=== PATIENT | male | born 1930 | race Caucasian/White ===

== ENCOUNTER 2021-05-28 13:20 | Emergency (ER) | payer MEDICARE, BC ==
[2021-05-28] MEDS ORDERED: Ondansetron PF 4 MG/2 ML Vial ONE (13:56)
[2021-05-28 14:07] LABS: #Eosinphils 0.1 10x3/uL (0.0-0.5); #Monocytes 0.5 10x3/uL (0.0-1.1); #Neutrophils 8.4 10x3/uL (1.5-8.4); %Basophils 0.4 % (0.0-2.0); %Eosinophils 1.2 % (0.0-6.0); %Lymphocytes 15.2 % (18.0-47.0); %Monocytes 4.9 % (0.0-10.0); %Neutrophils 77.7 % (40.0-75.0); Hemoglobin 15.4 g/dL (13.5-17.5); Mean Corpuscular HGB CONC 33.4 g/dL (32.0-36.0); Mean Corpuscular Hemoglobin 31.5 pg (27.0-33.0); Mean Corpuscular Volume 94.3 fl (81.2-95.1); Mean Platelet Volume 11.2 fl (7.4-10.4); Platelet Count 220 10x3/uL (150-450); RBC Distribution Width 13.7 % (11.5-14.5); Red Blood Cell (RBC) Count 4.89 10x6/uL (4.32-5.72); White Blood Cell (WBC) Count 10.8 10x3/uL (3.5-10.5)
[2021-05-28 14:14] LABS: ALT (SGPT) 19 U/L (8-55); AST (SGOT) 24 U/L (5-34); Albumin 4.4 g/dL (3.4-4.8); Alkaline Phosphatase 122 U/L (40-110); Anion Gap 17 mmol/L (10-20); BUN (Urea Nitrogen) 22 mg/dL (8.4-25.7); Bilirubin, Total 1.4 mg/dL (0.2-1.2); Calc. Creatinine Clearance 0 mL/min (70-130); Calcium 10.1 mg/dL (7.8-10.44); Carbon Dioxide 24 mmol/L (23-31); Chloride 104 mmol/L (98-107); Globulin 4.3 g/dL (2.4-3.5); Glucose 138 mg/dL (83-110); Lipase 16 U/L (8-78); Potassium 4.5 mmol/L (3.5-5.1); Protein, Total 8.7 g/dL (5.8-8.1); Sodium 140 mmol/L (136-145)
[2021-05-28 14:15] LABS: CK (CPK) 42 U/L (30-200)
[2021-05-28 14:34] LABS: CKMB 1.7 ng/mL (0-6.6)
[2021-05-28 16:12] LABS: Troponin I 0.023 ng/mL (< 0.028)
[2021-05-28 18:07] LABS: Bilirubin Neg (Negative); Blood, Urine Negative (Negative); Clarity Clear (Clear); Glucose, Urine (Dipstick) Normal (Negative); Ketone, Urine 15 mg/dL (Negative); Leukocyte Negative (Negative); Nitrite Negative (Negative); Protein, Urine (Dipstick) 30 mg/dl (Neg-Trace); Specific Gravity, Urine 1.005 (1.002-1.036); Urobilinogen Normal mg/dL (Less than 2)
[2021-05-28 18:22] LABS: Squamous Epithelial 0-3 HPF (0-3)
[2021-05-28 18:23] LABS: Bacteria/HPF Rare-Few HPF (None Seen); RBC/HPF 0-3 HPF (0-3); WBC/HPF None Seen HPF (0-3)
[2021-05-29 16:25] LABS: SARS-CoV-2 PCR by NAA Not Detected (NotDetected)
== END 2021-05-28 19:15 | disposition home or self-care (01) ==
LOC: CSHERS 13:20
DX: K52.9 Noninfective gastroenteritis and colitis, unspecified (principal); K86.89 Other specified diseases of pancreas; R91.1 Solitary pulmonary nodule; Z20.822 Contact with and (suspected) exposure to COVID-19; I10 Essential (primary) hypertension; E03.9 Hypothyroidism, unspecified
CPT/HCPCS: 71045; 74177; 76705; 80053; 82550; 82553; 83605; 83690; 83880; 84484 ×2; 85025; 93005; U0003; U0005; 81003; 81015; J2405

== ENCOUNTER 2021-11-06 20:39 | Inpatient (IN) | payer MEDICARE, BC ==
[2021-11-06 21:44] LABS: #Eosinphils 0.2 10x3/uL (0.0-0.5); #Monocytes 1.9 10x3/uL (0.0-1.1); #Neutrophils 10.5 10x3/uL (1.5-8.4); %Basophils 0.2 % (0.0-2.0); %Eosinophils 1.1 % (0.0-6.0); %Lymphocytes 12.5 % (18.0-47.0); %Monocytes 13.3 % (0.0-10.0); %Neutrophils 72.4 % (40.0-75.0); Mean Corpuscular HGB CONC 32.9 g/dL (32.0-36.0); Mean Corpuscular Hemoglobin 31.3 pg (27.0-33.0); Mean Corpuscular Volume 95.3 fl (81.2-95.1); Mean Platelet Volume 10.7 fl (7.4-10.4); Platelet Count 189 10x3/uL (150-450); RBC Distribution Width 13.5 % (11.5-14.5); Red Blood Cell (RBC) Count 4.47 10x6/uL (4.32-5.72); White Blood Cell (WBC) Count 14.5 10x3/uL (3.5-10.5)
[2021-11-06 21:54] LABS: ALT (SGPT) 24 U/L (8-55); AST (SGOT) 22 U/L (5-34); Albumin 4.3 g/dL (3.4-4.8); Alkaline Phosphatase 99 U/L (40-110); Anion Gap 13 mmol/L (10-20); BUN (Urea Nitrogen) 23 mg/dL (8.4-25.7); Bilirubin, Total 0.9 mg/dL (0.2-1.2); Calc. Creatinine Clearance 0 mL/min (70-130); Calcium 9.4 mg/dL (7.8-10.44); Carbon Dioxide 26 mmol/L (23-31); Chloride 104 mmol/L (98-107); Globulin 3.1 g/dL (2.4-3.5); Glucose 93 mg/dL (83-110); Potassium 4.2 mmol/L (3.5-5.1); Protein, Total 7.4 g/dL (5.8-8.1); Sodium 139 mmol/L (136-145)
[2021-11-06] MEDS ORDERED: Azithromycin 500 MG VIAL ONE (23:27)
[2021-11-07] MEDS ORDERED: Acetaminophen 325 MG TAB PO PRN (00:10)
[2021-11-07] MEDS ORDERED: Calcium Carbonate 500 MG ChewTAB PO PRN (00:10)
[2021-11-07] MEDS ORDERED: Guaifenesin DM 100-10/5 ML UDCUP PO PRN (00:10)
[2021-11-07] MEDS ORDERED: Senokot S 8.6-50 MG TAB PO PRN (00:10)
[2021-11-07] MEDS ORDERED: Sodium Chloride 0.9% 500 ML IV SCH (01:00)
[2021-11-07 01:53] LABS: SARS-CoV-2 NAA Rapid Test Not Detected (NotDetected)
[2021-11-07] MEDS: Thyroid 60 MG TAB PO SCH (05:45)
[2021-11-07] MEDS ORDERED: Furosemide 20 MG TAB PO SCH (08:00)
[2021-11-07] MEDS: Cyanocobalamin (Vitamin B-12) 1,000 MCG TAB PO SCH (08:56)
[2021-11-07] MEDS: Aspirin 81 mg Enteric Coated Tablet PO SCH (08:57)
[2021-11-07] MEDS: Timolol 0.5% Ophth Soln 5 ml Bottle EA EYE SCH (08:57)
[2021-11-07] MEDS: Dorzolamide HCl 2% Ophth Soln 10 ml Bottle EA EYE SCH (08:57)
[2021-11-07] MEDS: Enoxaparin Sodium 40 MG/0.4 ML SYRINGE SC SCH (08:57)
[2021-11-07] MEDS: Potassium Chloride 10 MEQ TAB PO SCH (08:57)
[2021-11-07] MEDS: Furosemide 40 MG TAB PO SCH (08:58)
[2021-11-07] MEDS: Digoxin 0.125 MG TAB PO SCH (08:58)
[2021-11-07] MEDS: Famotidine 20 MG TAB PO SCH ×2 (08:58→20:37)
[2021-11-07 09:01] LABS: #Eosinphils 0.1 10x3/uL (0.0-0.5); #Monocytes 2.2 10x3/uL (0.0-1.1); #Neutrophils 9.6 10x3/uL (1.5-8.4); %Basophils 0.2 % (0.0-2.0); %Eosinophils 0.6 % (0.0-6.0); %Lymphocytes 16.5 % (18.0-47.0); %Monocytes 15.1 % (0.0-10.0); %Neutrophils 67.2 % (40.0-75.0); Mean Corpuscular HGB CONC 33.2 g/dL (32.0-36.0); Mean Corpuscular Hemoglobin 31.2 pg (27.0-33.0); Mean Corpuscular Volume 93.8 fl (81.2-95.1); Mean Platelet Volume 11.5 fl (7.4-10.4); Platelet Count 195 10x3/uL (150-450); RBC Distribution Width 13.7 % (11.5-14.5); Red Blood Cell (RBC) Count 4.17 10x6/uL (4.32-5.72); White Blood Cell (WBC) Count 14.3 10x3/uL (3.5-10.5)
[2021-11-07 09:20] LABS: Anion Gap 13 mmol/L (10-20); BUN (Urea Nitrogen) 17 mg/dL (8.4-25.7); Calc. Creatinine Clearance 0 mL/min (70-130); Calcium 8.8 mg/dL (7.8-10.44); Carbon Dioxide 25 mmol/L (23-31); Chloride 104 mmol/L (98-107); Glucose 100 mg/dL (83-110); Magnesium 1.8 mg/dL (1.6-2.6); Potassium 3.7 mmol/L (3.5-5.1); Sodium 138 mmol/L (136-145)
[2021-11-07 09:21] LABS: Digoxin 0.52 ng/mL (0.8-2.0)
[2021-11-07 10:03] VITALS: BMI 18.1
[2021-11-07 11:00] LABS: Bilirubin Neg (Negative); Blood, Urine Negative (Negative); Clarity Clear (Clear); Glucose, Urine (Dipstick) Normal (Negative); Ketone, Urine Negative (Negative); Leukocyte Negative (Negative); Nitrite Negative (Negative); Protein, Urine (Dipstick) Negative (Neg-Trace); Urobilinogen Normal mg/dL (Less than 2)
[2021-11-07 11:20] LABS: Bacteria/HPF None Seen HPF (None Seen); RBC/HPF None Seen HPF (0-3); Squamous Epithelial None Seen HPF (0-3); WBC/HPF None Seen HPF (0-3)
[2021-11-07] MEDS: Losartan 25 MG TAB PO SCH (20:37)
[2021-11-07] MEDS: Rosuvastatin 20 MG TAB PO SCH ×2 (20:38→20:47)
[2021-11-07] MEDS: Latanoprost 0.005% Ophth Soln 2.5 ml Bottle EA EYE SCH (22:46)
[2021-11-08] MEDS: Thyroid 60 MG TAB PO SCH (05:46)
[2021-11-08 06:46] LABS: #Eosinphils 0.1 10x3/uL (0.0-0.5); #Monocytes 1.8 10x3/uL (0.0-1.1); #Neutrophils 9.2 10x3/uL (1.5-8.4); %Basophils 0.3 % (0.0-2.0); %Eosinophils 0.7 % (0.0-6.0); %Neutrophils 71.6 % (40.0-75.0); Hemoglobin 14.1 g/dL (13.5-17.5); Mean Corpuscular HGB CONC 32.3 g/dL (32.0-36.0); Mean Corpuscular Hemoglobin 31.4 pg (27.0-33.0); Mean Corpuscular Volume 97.3 fl (81.2-95.1); Mean Platelet Volume 12.1 fl (7.4-10.4); Platelet Count 177 10x3/uL (150-450); RBC Distribution Width 13.3 % (11.5-14.5); Red Blood Cell (RBC) Count 4.49 10x6/uL (4.32-5.72); White Blood Cell (WBC) Count 12.9 10x3/uL (3.5-10.5)
[2021-11-08] MEDS: Enoxaparin Sodium 40 MG/0.4 ML SYRINGE SC SCH (07:58)
[2021-11-08] MEDS: Aspirin 81 mg Enteric Coated Tablet PO SCH (07:59)
[2021-11-08] MEDS: Timolol 0.5% Ophth Soln 5 ml Bottle EA EYE SCH (07:59)
[2021-11-08] MEDS: Dorzolamide HCl 2% Ophth Soln 10 ml Bottle EA EYE SCH (07:59)
[2021-11-08] MEDS: Cyanocobalamin (Vitamin B-12) 1,000 MCG TAB PO SCH (08:00)
[2021-11-08] MEDS: Digoxin 0.125 MG TAB PO SCH (08:00)
[2021-11-08] MEDS: Potassium Chloride 10 MEQ TAB PO SCH (08:00)
[2021-11-08] MEDS: Famotidine 20 MG TAB PO SCH (08:00)
[2021-11-08] MEDS: Furosemide 40 MG TAB PO SCH (08:03)
[2021-11-08 08:50] LABS: Anion Gap 16 mmol/L (10-20); BUN (Urea Nitrogen) 15 mg/dL (8.4-25.7); Calc. Creatinine Clearance 48 mL/min (70-130); Calcium 9.1 mg/dL (7.8-10.44); Carbon Dioxide 23 mmol/L (23-31); Chloride 103 mmol/L (98-107); Glucose 94 mg/dL (83-110); Potassium 3.5 mmol/L (3.5-5.1); Sodium 138 mmol/L (136-145)
[2021-11-08] MEDS ORDERED: Famotidine 20 MG TAB PO SCH (09:00)
[2021-11-08] MEDS: Rosuvastatin 20 MG TAB PO SCH (22:09)
[2021-11-08] MEDS: Losartan 25 MG TAB PO SCH (22:09)
[2021-11-08] MEDS: Latanoprost 0.005% Ophth Soln 2.5 ml Bottle EA EYE SCH (22:10)
[2021-11-09 05:08] LABS: Mean Corpuscular HGB CONC 32.3 g/dL (32.0-36.0); Mean Corpuscular Hemoglobin 31.2 pg (27.0-33.0); Mean Corpuscular Volume 96.4 fl (81.2-95.1); Platelet Count 188 10x3/uL (150-450); RBC Distribution Width 13.2 % (11.5-14.5); Red Blood Cell (RBC) Count 4.17 10x6/uL (4.32-5.72); White Blood Cell (WBC) Count 9.8 10x3/uL (3.5-10.5)
[2021-11-09 05:17] LABS: Anion Gap 13 mmol/L (10-20); BUN (Urea Nitrogen) 15 mg/dL (8.4-25.7); Calc. Creatinine Clearance 49 mL/min (70-130); Calcium 8.7 mg/dL (7.8-10.44); Carbon Dioxide 23 mmol/L (23-31); Chloride 104 mmol/L (98-107); Glucose 90 mg/dL (83-110); Potassium 3.4 mmol/L (3.5-5.1); Sodium 137 mmol/L (136-145)
[2021-11-09 06:20] LABS: MDiff Complete? YES
[2021-11-09] MEDS: Thyroid 60 MG TAB PO SCH (06:22)
[2021-11-09 06:23] LABS: Eosinophils 1 % (0-10); Lymphocytes 17 % (21-51); Monocytes 12 % (0-10); Neutrophil 66 % (42-75); Reactive Lymphocytes 4 % (0-10)
[2021-11-09] MEDS ORDERED: Electrolyte Replacement Protocol 1 EACH FS SCH (07:15)
[2021-11-09] MEDS ORDERED: Potassium Chloride 20 MEQ TAB PO SCH (07:30)
[2021-11-09 08:30] LABS: Magnesium 1.8 mg/dL (1.6-2.6)
[2021-11-09] MEDS ORDERED: Magnesium 2 GM/50 ML 2 GM in Premix Bag 1 BAG IVPB SCH (08:45)
[2021-11-09] MEDS ORDERED: Famotidine 20 MG TAB PO SCH (09:00)
[2021-11-09] MEDS: Timolol 0.5% Ophth Soln 5 ml Bottle EA EYE SCH (09:28)
[2021-11-09] MEDS: Dorzolamide HCl 2% Ophth Soln 10 ml Bottle EA EYE SCH (09:28)
[2021-11-09] MEDS: Digoxin 0.125 MG TAB PO SCH (09:29)
[2021-11-09] MEDS: Enoxaparin Sodium 40 MG/0.4 ML SYRINGE SC SCH (09:29)
[2021-11-09] MEDS: Potassium Chloride 10 MEQ TAB PO SCH (09:29)
[2021-11-09] MEDS: Cyanocobalamin (Vitamin B-12) 1,000 MCG TAB PO SCH (09:29)
[2021-11-09] MEDS: Furosemide 40 MG TAB PO SCH (09:30)
[2021-11-09] MEDS: Aspirin 81 mg Enteric Coated Tablet PO SCH (09:30)
[2021-11-09 15:16] VITALS: BP 131/74; TEMP 99
== END 2021-11-09 19:15 | DRG 69 ==
LOC: CSHERS 20:39 → CSHERHOLD 23:26 → OBSVTOIN 11-07 00:10 → CSHTELE 11-07 06:13
PROVIDERS: ADMIT Student in an Organized Health Care Education/Training Program; ATTEND Family Medicine
DX: G45.9 Transient cerebral ischemic attack, unspecified (principal); I48.20 Chronic atrial fibrillation, unspecified; Z66 Do not resuscitate; D72.829 Elevated white blood cell count, unspecified; I16.0 Hypertensive urgency; E86.0 Dehydration; E03.9 Hypothyroidism, unspecified; H40.9 Unspecified glaucoma; I10 Essential (primary) hypertension; G47.33 Obstructive sleep apnea (adult) (pediatric); D50.0 Iron deficiency anemia secondary to blood loss (chronic); Z20.822 Contact with and (suspected) exposure to COVID-19; D53.9 Nutritional anemia, unspecified; Z85.46 Personal history of malignant neoplasm of prostate; Z90.89 Acquired absence of other organs; Z88.5 Allergy status to narcotic agent
CPT/HCPCS: 0240U; 36415; 70450; 70551; 71045; 80048; 80053; 80162; 81001; 82607; 82746; 83735; 84443; 84484; 85025; 93005; 93306; 93880; 96365; 96366; 96372; 96375; G0378; J0456; J1650; J3475; J7030